=== PATIENT | male | born 1985 | race Hispanic/Latino ===

== ENCOUNTER 2018-12-24 16:27 | Emergency (ER) | payer SELFPAY ==
[2018-12-24] MEDS ORDERED: TETANUS & DIPHTHERIA TOX,ADULT 0.5 ML VIAL ONE (16:53)
[2018-12-24] MEDS ORDERED: FENTANYL CITR 100 MCG/2 ML ONE ×2 (16:53→17:59)
[2018-12-24] MEDS ORDERED: ONDANSETRON 4 MG/2 ML VIAL ONE (16:54)
--- NOTE | 2018-12-24 17:35 | RAD REPORT ---
EXAM DESCRIPTION: RAD - Hand Left 3 View - 12/24/2018 5:19 pm CLINICAL HISTORY: PAIN COMPARISON: No comparisons FINDINGS: Soft tissue swelling affects the first finger. No fracture or foreign body.
--- NOTE | 2018-12-24 18:29 | RAD REPORT ---
EXAM DESCRIPTION: CT - Wrist Left W Con - 12/24/2018 6:19 pm CLINICAL HISTORY: puncture wound with suspected radial artery injury Trauma, pain COMPARISON: <Comparisons> FINDINGS: No fracture or dislocation is seen. No radiopaque foreign body. Soft tissue edema and swel ling is seen along the radial aspect of the wrist and hand adjacent to the base of the first metacarp al. The radial and ulnar artery show normal enhancement pattern. All CT scans are performed using dose optimization technique as appropriate and may include automated exposure control or mA/KV adjustment according to patient size. IMPRESSION: No significant flow abnormality of the radial or ulnar artery is seen.
[2018-12-24] MEDS ORDERED: HYDROMORPHONE HCL 0.5 MG/0.5 ML INJ ONE (18:57)
[2018-12-24] MEDS ORDERED: LIDOCAINE 1% MPF 5 ML VIAL ONE (19:51)
--- NOTE | 2018-12-24 19:59 | ER ---
Nurse's Notes [facility] Name: Julian Garcia Age: 33 yrs Sex: Male : 1985 Arrival Date: 12/24/2018 Time: 16:29 Bed 2 Private MD: Diagnosis: Puncture wound without foreign body of left wrist Presentation: 12/24 16:30 Presenting complaint: Patient states: pt was at work with a nail gun and the nail went sv through his left anterior wrist up into the left thumb and he pulled it out. Care prior to arrival: None. 16:30 Acuity: SANTOSH 2 sv 16:30 Method Of Arrival: Ambulatory sv 17:18 Transition of care: patient was not received from another setting of care. Onset of tw2 symptoms was December 24, 2018. Risk Assessment: Do you want to hurt yourself or someone else? Patient reports no desire to harm self or others. Initial Sepsis Screen: Does the patient meet any 2 criteria? No. Patient's initial sepsis screen is negative. Does the patient have a suspected source of infection? No. Patient's initial sepsis screen is negative. 19:20 Mechanism of Injury: Penetrating trauma inflicted by nail gun. Trauma event details: tw2 Injury occurred in the [facility]. Triage Assessment: 16:48 General: Appears in no apparent distress. uncomfortable, Behavior is cooperative, bp appropriate for age, anxious. Pain: Complains of pain in left wrist. EENT: No deficits noted. Neuro: No deficits noted. Cardiovascular: No deficits noted. Respiratory: No deficits noted. GI: No signs and/or symptoms were reported involving the gastrointestinal system. : No signs and/or symptoms were reported regarding the genitourinary system. Derm: No deficits noted. Musculoskeletal: No deficits noted. Injury Description: Puncture sustained to left wrist. Trauma Activation: Not Applicable Physician: ED Physician; Name: ; Notified At: ; Arrived At: Physician: General Surgeon; Name: ; Notified At: ; Arrived At: Physician: Radiology; Name: ; Notified At: ; Arrived At: Physician: Respiratory; Name: ; Notified At: ; Arrived At: Physician: Lab; Name: ; Notified At: ; Arrived At: Historical: - Allergies: 16:31 No Known Allergies; sv - Immunization history: Last tetanus immunization: unknown. - Social history:: Smoking status: . - Ebola Screening: : Patient denies travel to an Ebola-affected area in the 21 days before illness onset. Screenin:43 Abuse screen: Denies threats or abuse. Denies injuries from another. Tuberculosis bp screening: No symptoms or risk factors identified. 19:20 Nutritional screening: No deficits noted. Fall Risk None identified. tw2 Primary Survey: 16:43 NO uncontrolled hemorrhage observed. A: Airway: patent. Breathing/Chest: Respiratory bp pattern: regular, Respiratory effort: spontaneous, unlabored. Circulation: Skin color: pink, Skin temperature: warm, moist. Disability Alert. Exposure/Environment: All clothing and personal items were removed. Forensic evidence collection is not deemed to be indicated at this time. Items placed in patient belonging bag. 17:45 Reassessment Airway Airway Breathing/Chest Respiratory pattern Regular Respiratory tw2 effort Spontaneous Unlabored Breath sounds Clear Chest inspection Symmetrical Circulation Heart tones Present Disability Alert. Assessment: 16:43 General: Appears in no apparent distress. uncomfortable, slender, Behavior is calm, bp cooperative, appropriate for age. Pain: Complains of pain in left wrist. Neuro: No deficits noted. EENT: No deficits noted. Cardiovascular: No deficits noted. Respiratory: No deficits noted. GI: No signs and/or symptoms were reported involving the gastrointestinal system. : No signs and/or symptoms were reported regarding the genitourinary system. Derm: No deficits noted. Musculoskeletal: No deficits noted. Injury Description: Puncture sustained to left wrist is NAILGUN. 17:18 Reassessment: Patient appears in no apparent distress at this time. No changes from tw2 previously documented assessment. Patient and/or family updated on plan of care and expected duration. Pain level reassessed. Patient is alert, oriented x 3, equal unlabored respirations, skin warm/dry/pink. 18:21 Reassessment: PT RETURNED FROM CT, RESULTS PENDING. bp 19:45 Reassessment: Patient appears in no apparent distress at this time. Patient is alert, lp1 oriented x 3, equal unlabored respirations, skin warm/dry/pink. Reassessment: Patient states pain 8/10 to left wrist. Cardiovascular: Pulses are palpable in right radial artery and left radial artery. 20:36 Reassessment: Patient and/or family updated on plan of care and expected duration. Pain ea level reassessed. Patient is alert, oriented x 3, equal unlabored respirations, skin warm/dry/pink. Discharge instruction given to patient, verbalized the understanding of instruction. Pt left ambulatory accompanied by family, pt tolerating well. Vital Signs: 16:31 BP 129 / 86; Pulse 120; Resp 18; Temp 98; Pulse Ox 99% ; Weight 72.57 kg; Height 5 ft. sv 7 in. (170.18 cm); 17:18 Pulse 74; Resp 17; Pulse Ox 95% on R/A; tw2 18:21 BP 126 / 79; Pulse 81; Resp 17; Pulse Ox 100% ; bp 19:45 BP 120 / 85; Pulse 62; Resp 16; Pulse Ox 100% on R/A; Pain 8/10; lp1 20:15 BP 108 / 73; Pulse 66; Resp 16; Pulse Ox 100% on R/A; lp1 16:31 Body Mass Index 25.06 (72.57 kg, 170.18 cm) sv Anton Coma Score: 16:31 Eye Response: spontaneous(4). Verbal Response: oriented(5). Motor Response: obeys sv commands(6). Total: 15. Trauma Score (Adult): 16:31 Eye Response: spontaneous(1); Verbal Response: oriented(1); Motor Response: obeys sv commands(2); Systolic BP: > 89 mm Hg(4); Respiratory Rate: 10 to 29 per min(4); Anton Score: 15; Trauma Score: 12 ED Course: 16:29 Patient arrived in ED. as 16:30 Triage completed. sv 16:31 Tristian Rodriguez, PARISA is Primary Nurse. bp 16:32 Georges Montesinos PA is PHCP. jr8 16:32 Misha Larson MD is Attending Physician. jr8 16:43 Patient has correct armband on for positive identification. Allergy band placed. Bed in bp low position. Call light in reach. Side rails up X2. 16:43 Patient maintains SpO2 saturation greater than 95% on room air. Thermoregulation: warm bp blanket given to patient. 16:46 Arm band placed on. bp 17:10 Inserted saline lock: 22 gauge in right forearm, using aseptic technique. Blood bp collected. 17:23 Hand Left 3 View XRAY In Process Unspecified. EDMS 18:29 Wrist Left W Con In Process Unspecified. EDMS 19:00 Report given to EbonyRN and PARISA Shabazz. tw2 19:57 Modesto Nieves MD is Referral Physician. jr8 20:13 No provider procedures requiring assistance completed. lp1 20:36 IV discontinued, intact, bleeding controlled, No redness/swelling at site. Pressure ea dressing applied. 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 Exp: bp 08/21/2020. Lot #: [id number]. } Route: IM; Site: right deltoid; 17:54 Follow up: Response: No adverse reaction bp 17:00 Drug: fentaNYL (PF) 50 mcg Route: IVP; Site: right antecubital; bp 17:54 Follow up: Response: Pain is decreased bp 17:00 Drug: Zofran 4 mg Route: IVP; Site: right forearm; bp 17:54 Follow up: Response: Nausea is decreased bp 17:54 CANCELLED (Physician Discretion): fentaNYL Patch (50 mcg/hr) 1 patches Transdermal jr8 once; RASS on ADMIN: Combtv4, Very Agttd3, Agttd2, Rstlss1, AlertClm0, Drwsy-1, Lt Sdtn-2, Mod Sdtn-3, Dp Sdtn-4, UnArsble-5 18:02 Drug: fentaNYL (PF) 50 mcg Route: IVP; Site: right forearm; bp 18:52 Follow up: Response: No adverse reaction; Pain is unchanged, physician notified; RASS: tw2 Alert and Calm (0) 18:58 Drug: Dilaudid 0.5 mg Route: IVP; Site: right forearm; bp 19:45 Follow up: Response: Pain is decreased; RASS: Alert and Calm (0) lp1 20:06 Drug: Ancef 1 grams Route: IVPB; Site: right forearm; ea 20:36 Follow up: Response: No adverse reaction; IV Status: Completed infusion ea Intake: 16:31 PO: 0ml; Total: 0ml. sv Output: 16:31 Urine: 0ml; Total: 0ml. sv Outcome: 19:21 Patient's length of stay in the Emergency Department was greater than 2 hours. d/t tw2 imaging and evaluationPatient's length of stay extended due to 19:58 Discharge ordered by MD. chaudhari 20:36 Condition: stable ea 20:36 Discharge instructions given to patient, Instructed on discharge instructions, follow up and referral plans. medication usage, Demonstrated understanding of instructions, follow-up care, medications, Prescriptions given X 3. 20:38 Discharged to home ambulatory, with family. ea 20:38 Patient left the ED. ea Signatures: Dispatcher [employer] EDMS Jayda Pena RN RN Coby Alcazar Laura, RN RN lp1 Georges Montesinos PA PA Stacey De La Cruz RN RN tw2 [place] Farnsworth RN RN ea Peltier, Brian, RN RN bp Corrections: (The following items were deleted from the chart) 16:44 16:43 Pain: bp bp
--- NOTE | 2018-12-24 19:59 | EDPHYS ---
Physician Documentation [facility] Name: Julian Garcia Age: 33 yrs Sex: Male : 1985 Arrival Date: 12/24/2018 Time: 16:29 Bed 2 Private MD: Misha Jain HPI: 12/24 16:41 This 33 yrs old Male presents to ER via Ambulatory with complaints of Puncture jr8 Wound To Hand. 16:41 The patient or guardian reports a puncture wound, from a nail. The complaints affect jr8 the left wrist. Context: The problem was sustained at work, resulted from Nail gun use. Onset: The symptoms/episode began/occurred just prior to arrival. Modifying factors: The symptoms are alleviated by nothing, the symptoms are aggravated by nothing. Associated signs and symptoms: Pertinent negatives: cyanosis distally, decreased sensation distally, fever, nausea, numbness distally, tingling distally, vomiting. 16:44 Pt reports using nail gun and accidently shooting self in left wrist. . jr8 Historical: - Allergies: 16:31 No Known Allergies; sv - Immunization history: Last tetanus immunization: unknown. - Social history:: Smoking status: . - Ebola Screening: : Patient denies travel to an Ebola-affected area in the 21 days before illness onset. ROS: 16:44 Constitutional: Negative for fever, chills, and weight loss, Eyes: Negative for injury, jr8 pain, redness, and discharge, ENT: Negative for injury, pain, and discharge, Neck: Negative for injury, pain, and swelling, Cardiovascular: Negative for chest pain, palpitations, and edema, Respiratory: Negative for shortness of breath, cough, wheezing, and pleuritic chest pain, Abdomen/GI: Negative for abdominal pain, nausea, vomiting, diarrhea, and constipation, Back: Negative for injury and pain, Skin: Negative for injury, rash, and discoloration, Neuro: Negative for headache, weakness, numbness, tingling, and seizure. 16:44 Skin: Positive for of the left wrist, Puncture wount. Exam: 16:44 Constitutional: This is a well developed, well nourished patient who is awake, alert, jr8 and in no acute distress. Head/Face: Normocephalic, atraumatic. Eyes: Pupils equal round and reactive to light, extra-ocular motions intact. Lids and lashes normal. Conjunctiva and sclera are non-icteric and not injected. Cornea within normal limits. Periorbital areas with no swelling, redness, or edema. ENT: Nares patent. No nasal discharge, no septal abnormalities noted. Tympanic membranes are normal and external auditory canals are clear. Oropharynx with no redness, swelling, or masses, exudates, or evidence of obstruction, uvula midline. Mucous membranes moist. Neck: Trachea midline, no thyromegaly or masses palpated, and no cervical lymphadenopathy. Supple, full range of motion without nuchal rigidity, or vertebral point tenderness. No Meningismus. Chest/axilla: Normal chest wall appearance and motion. Nontender with no deformity. No lesions are appreciated. Cardiovascular: Regular rate and rhythm with a normal S1 and S2. No gallops, murmurs, or rubs. Normal PMI, no JVD. No pulse deficits. Respiratory: Lungs have equal breath sounds bilaterally, clear to auscultation and percussion. No rales, rhonchi or wheezes noted. No increased work of breathing, no retractions or nasal flaring. Abdomen/GI: Soft, non-tender, with normal bowel sounds. No distension or tympany. No guarding or rebound. No evidence of tenderness throughout. Back: No spinal tenderness. No costovertebral tenderness. Full range of motion. MS/ Extremity: Pulses equal, no cyanosis. Neurovascular intact. Full, normal range of motion. Neuro: Awake and alert, GCS 15, oriented to person, place, time, and situation. Cranial nerves II-XII grossly intact. Motor strength 5/5 in all extremities. Sensory grossly intact. Cerebellar exam normal. Normal gait. 16:44 Musculoskeletal/extremity: Extremities: puncture, Puncture wound to left wrist just medial to CMC line. The puncture wound is approximately 1.5cm from the palpated radial pulse. Normal sensation without numbness or tingling, pt has full hand function without limitation of hand or wrist. Patient had + radial deficit on Amilcar's test with normal ulnar collateral circulation , ROM: intact in all extremities, full active range of motion, full passive range of motion, Pulses: noted to be 2+ in the right radial artery and left radial artery, Sensation intact. Vital Signs: 16:31 BP 129 / 86; Pulse 120; Resp 18; Temp 98; Pulse Ox 99% ; Weight 72.57 kg; Height 5 ft. sv 7 in. (170.18 cm); 17:18 Pulse 74; Resp 17; Pulse Ox 95% on R/A; tw2 18:21 BP 126 / 79; Pulse 81; Resp 17; Pulse Ox 100% ; bp 19:45 BP 120 / 85; Pulse 62; Resp 16; Pulse Ox 100% on R/A; Pain 8/10; lp1 20:15 BP 108 / 73; Pulse 66; Resp 16; Pulse Ox 100% on R/A; lp1 16:31 Body Mass Index 25.06 (72.57 kg, 170.18 cm) sv Margie Coma Score: 16:31 Eye Response: spontaneous(4). Verbal Response: oriented(5). Motor Response: obeys sv commands(6). Total: 15. Trauma Score (Adult): 16:31 Eye Response: spontaneous(1); Verbal Response: oriented(1); Motor Response: obeys sv commands(2); Systolic BP: > 89 mm Hg(4); Respiratory Rate: 10 to 29 per min(4); Casimiro Score: 15; Trauma Score: 12 MDM: 16:32 Patient medically screened. jr8 19:48 Data reviewed: vital signs, nurses notes, lab test result(s), radiologic studies, CT jr8 scan, plain films. Data interpreted: Pulse oximetry: on room air is 100 %. Interpretation: normal. Counseling: I had a detailed discussion with the patient and/or guardian regarding: the historical points, exam findings, and any diagnostic results supporting the discharge/admit diagnosis, lab results, radiology results, the need for outpatient follow up, a hand specialist, to return to the emergency department if symptoms worsen or persist or if there are any questions or concerns that arise at home. 19:56 ED course: Patient still with 2 + radial pulses. Pain under control. No extravasation jr8 from wound site. CT shows no flow defect of the radial artery. Full ROM. Will have patient f/u with hand surgery . 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 Exp: bp 08/21/2020. Lot #: [id number]. } Route: IM; Site: right deltoid; 17:54 Follow up: Response: No adverse reaction bp 17:00 Drug: fentaNYL (PF) 50 mcg Route: IVP; Site: right antecubital; bp 17:54 Follow up: Response: Pain is decreased bp 17:00 Drug: Zofran 4 mg Route: IVP; Site: right forearm; bp 17:54 Follow up: Response: Nausea is decreased bp 17:54 CANCELLED (Physician Discretion): fentaNYL Patch (50 mcg/hr) 1 patches Transdermal jr8 once; RASS on ADMIN: Combtv4, Very Agttd3, Agttd2, Rstlss1, AlertClm0, Drwsy-1, Lt Sdtn-2, Mod Sdtn-3, Dp Sdtn-4, UnArsble-5 18:02 Drug: fentaNYL (PF) 50 mcg Route: IVP; Site: right forearm; bp 18:52 Follow up: Response: No adverse reaction; Pain is unchanged, physician notified; RASS: tw2 Alert and Calm (0) 18:58 Drug: Dilaudid 0.5 mg Route: IVP; Site: right forearm; bp 19:45 Follow up: Response: Pain is decreased; RASS: Alert and Calm (0) lp1 20:06 Drug: Ancef 1 grams Route: IVPB; Site: right forearm; ea 20:36 Follow up: Response: No adverse reaction; IV Status: Completed infusion ea Disposition: 12/24/18 19:58 Discharged to Home. Impression: Puncture wound without foreign body of left wrist. - Condition is Stable. - Discharge Instructions: Puncture Wound. - Prescriptions for Ibuprofen 800 mg Oral Tablet - take 1 tablet by ORAL route every 12 hours As needed take with food; 20 tablet. Tylenol- Codeine #3 300-30 mg Oral Tablet - take 2 tablets by ORAL route every 6 hours As needed; 12 tablet. Bactrim DS 800- 160 mg Oral Tablet - take 1 tablet by ORAL route every 12 hours for 10 days; 20 tablet. - Medication Reconciliation Form, Thank You Letter, Antibiotic Education, Prescription Opioid Use form. - Follow up: Modesto Nieves MD; When: 2 - 3 days; Reason: Wound Recheck, Recheck today's complaints, Continuance of care, Re-evaluation by your physician. - Problem is new. - Symptoms have improved. Signatures: Dispatcher [employer] EDJayda Mosley RN RN Georges Wood PA PA jr8 Stacey Cole RN RN tw2 [place] Farnsworth RN RN ea Peltier, Brian, RN RN bp Ebony Kearney RN lp1 Corrections: (The following items were deleted from the chart) 17:54 17:51 fentaNYL Patch (50 mcg/hr) 1 patches Transdermal once; RASS on ADMIN: Combtv4, jr8 Very Agttd3, Agttd2, Rstlss1, AlertClm0, Drwsy-1, Lt Sdtn-2, Mod Sdtn-3, Dp Sdtn-4, UnArsble-5 ordered. jr8 19:50 16:44 Musculoskeletal/extremity: Extremities: puncture, Puncture wound to left wrist jr8 just medial to CMC line. The puncture wound is approximately 1.5cm from the palpated radial pulse. Normal sensation without numbness or tingling, pt has full hand function without limitation of hand or wrist. , jr8 20:38 19:58 12/24/2018 19:58 Discharged to Home. Impression: Puncture wound without foreign ea body of left wrist. Condition is Stable. Forms are Medication Reconciliation Form, Thank You Letter, Antibiotic Education, Prescription Opioid Use. Follow up: Modesto Nieves; When: 2 - 3 days; Reason: Wound Recheck, Recheck today's complaints, Continuance of care, Re-evaluation by your physician. Problem is new. Symptoms have improved. jr8
[2018-12-24] MEDS ORDERED: CEFAZOLIN/SWI 1gm 1 GM/10 ML SYR ONE (20:03)
[2018-12-24 22:07] VITALS: TEMP 98
[2018-12-24 22:09] VITALS: O2SAT 100
[2018-12-24 22:12] VITALS: BP 108/73
== END 2018-12-24 20:38 | disposition home or self-care (01) ==
LOC: ER 16:27
DX: S61.532A Puncture wound without foreign body of left wrist, initial encounter (principal); W29.4XXA Contact with nail gun, initial encounter; Y93.9 Activity, unspecified; Y92.89 Other specified places as the place of occurrence of the external cause; Y99.8 Other external cause status; Z23 Encounter for immunization
CPT/HCPCS: 73201; 90471; 90714; 96365; 96375; 99284; J0690; J1170; J2405; J3010; Q9966

== ENCOUNTER 2019-05-31 23:28 | Emergency (ER) | payer SELFPAY ==
[2019-06-01] MEDS ORDERED: FLUORESCEIN SODIUM 1 MG/WRAP ONE (00:05)
[2019-06-01] MEDS ORDERED: TETRACAINE HCL 0.5% 4ML OPTH ONE (00:05)
[2019-06-01] MEDS ORDERED: Ringers Lactate 1,000 ML IV ONE (00:52)
[2019-06-01] MEDS ORDERED: TETANUS & DIPHTHERIA TOX,ADULT 0.5 ML VIAL ONE (01:21)
--- NOTE | 2019-06-01 01:33 | EDPHYS ---
Physician Documentation [facility] Name: Julian Garcia Age: 33 yrs Sex: Male : 1985 Arrival Date: 05/31/2019 Time: 23:31 Bed 5 Private MD: ED Physician Misha Larson HPI: 06/01 00:16 This 33 yrs old Male presents to ER via Ambulatory with complaints of Foreign cp Body In Eye. 00:16 The patient is experiencing foreign body sensation, pain, redness, to the left eye, cp caused by possible metal fragment. Onset: The symptoms/episode began/occurred today. Duration: the symptoms are continuous. 00:16 Patient does not utilize any form of vision correction. cp 00:16 Associated signs and symptoms: Pertinent negatives: ear ache, fever, headache. Severity cp of symptoms: in the emergency department the symptoms are unchanged despite home interventions. 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 Flushed his eye with over the counter eye solution and used q-tip to remove some "plastic" appearing debris this evening. Historical: - Allergies: 05/31 23:50 No Known Allergies; ca1 - Home Meds: 23:50 None [Active]; ca1 - PMHx: 23:50 None; ca1 - PSHx: 23:50 None; ca1 - Immunization history:: Adult Immunizations up to date, Flu vaccine is not up to date. - Coronavirus screen:: The patient has NOT traveled to [place] in the past 14 days. The patient has NOT had contact with known/suspected case of Coronavirus?. - Social history:: Smoking status: Patient denies any tobacco usage or history of. - Ebola Screening: : Patient negative for fever greater than or equal to 101.5 degrees Fahrenheit, and additional compatible Ebola Virus Disease symptoms Patient denies exposure to infectious person Patient denies travel to an Ebola-affected area in the 21 days before illness onset No symptoms or risks identified at this time. ROS: 06/01 00:20 Constitutional: Negative for body aches, chills, fever. cp 00:20 Eyes: Positive for foreign body sensation, pain, redness, of the left eye. cp 00:20 ENT: Negative for drainage from ear(s), ear pain, sore throat, difficulty swallowing, difficulty handling secretions. 00:20 Cardiovascular: Negative for chest pain, palpitations. 00:20 Respiratory: Negative for cough, shortness of breath, wheezing. 00:20 Abdomen/GI: Negative for abdominal pain, vomiting, diarrhea, constipation. 00:20 Skin: Negative for rash. 00:20 Neuro: Negative for altered mental status, headache, weakness. 00:20 All other systems are negative. Exam: 00:35 Constitutional: The patient appears in no acute distress, alert, awake, non-toxic, well cp developed, well nourished, uncomfortable. 00:35 Head/Face: Normocephalic, atraumatic. cp 00:35 Eyes: Periorbital structures: appear normal, Pupils: equal, round, and reactive to light and accomodation, Extraocular movements: intact throughout, Conjunctiva: injected, in the left eye, Corneas: abrasion, that is moderate sized, upper and lower outer cornea, foreign body, is not appreciated, a fluorescein strip employed to appreciate the findings, Lids and lashes: appear normal, bilaterally, Visual sears: are intact, Examination of the other eye reveals no obvious gross abnormality. 00:35 ENT: External ear(s): are unremarkable, Nose: is normal, Mouth: is normal, Posterior pharynx: Airway: no evidence of obstruction, patent. 00:35 Chest/axilla: Inspection: normal. 00:35 Cardiovascular: Rate: normal, Rhythm: regular. 00:35 Respiratory: the patient does not display signs of respiratory distress, Respirations: normal. 00:35 Skin: cellulitis, is not appreciated, no rash present. 01:05 Visual Acuity: I have reviewed the nursing documentation. cp Vital Signs: 05/31 23:50 BP 133 / 87; Pulse 77; Resp 16 S; Temp 97.1(O); Pulse Ox 100% on R/A; Weight 81.65 kg ca1 (R); Height 5 ft. 7 in. (170.18 cm) (R); Pain 10/10; 23:50 Body Mass Index 28.19 (81.65 kg, 170.18 cm) ca1 Visual Acuity: 06/01 00:55 Left Eye Visual acuity 20/25, Pupil size 3 mm, Normal, React To Light, Reactive To lp1 Accomodation; Right Eye Visual acuity 20/25, Pupil size 3 mm, Normal, React To Light, Reactive To Accomodation; Both Eyes Visual acuity 20/15; Without Lenses; MDM: 00:15 Patient medically screened. cp 00:20 Differential diagnosis: Corneal abrasion of left eye. Corneal ulcer of left eye. cp Foreign body in left eye. Acute iritis of left eye. Infectious conjunctivitis in left eye. Ultraviolet keratitis in left eye. 01:30 Data reviewed: vital signs, nurses notes, and as a result, I will discharge patient. cp 01:30 Counseling: I had a detailed discussion with the patient and/or guardian regarding: the cp historical points, exam findings, and any diagnostic results supporting the discharge/admit diagnosis, the need for outpatient follow up, an opthalmologist, to return to the emergency department if symptoms worsen or persist or if there are any questions or concerns that arise at home. Response to treatment: the patient's symptoms have mildly improved after treatment, and as a result, I will discharge patient. 05/31 23:57 Order name: Eye Tray; Complete Time: 23:57 [facility] 05/31 23:57 Order name: Fluoresene Opth strip; Complete Time: 23:57 lp1 06/01 00:32 Order name: Visual Acuity; Complete Time: 01:29 lp1 06/01 00:42 Order name: Misc. 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 Exp: lp1 04/25/2021. Lot #: [id number]. } Route: IM; Site: right deltoid; 02:14 Follow up: Response: No adverse reaction lp1 02:00 Drug: Gentamicin Drops 0.3 % 1 drops Route: Ophthalmic; Site: left eye; lp1 Disposition: 02:20 Chart complete. cp 06/02 00:02 Co-signature as Attending Physician, Misha Larson MD I agree with the assessment and farhan plan of care. Disposition: 06/01/19 01:32 Discharged to Home. Impression: Injury of conjunctiva and corneal abrasion without foreign body, left eye. - Condition is Stable. - Discharge Instructions: Corneal Abrasion. - Prescriptions for Gentamicin 0.3 % Ophthalmic Drops - instill 1 drop by OPHTHALMIC route every 4 hours for 7 days; 1 bottle. - Medication Reconciliation Form, Thank You Letter, Antibiotic Education, Prescription Opioid Use form. - Follow up: Tony Rodriguez MD; When: 1 - 2 days; Reason: Recheck today's complaints. - Problem is new. - Symptoms have improved. Signatures: Misha Larson MD MD cha Pena, Laura, RN RN lp1 Misha Herring PA PA cp Estephanie De Guzman RN RN ca1 Corrections: (The following items were deleted from the chart) 06/01 02:16 01:32 06/01/2019 01:32 Discharged to Home. Impression: Injury of conjunctiva and lp1 corneal abrasion without foreign body, left eye. Condition is Stable. Forms are Medication Reconciliation Form, Thank You Letter, Antibiotic Education, Prescription Opioid Use. Follow up: Tony Rodriguez; When: 1 - 2 days; Reason: Recheck today's complaints. Problem is new. Symptoms have improved. cp
--- NOTE | 2019-06-01 01:33 | ER ---
Nurse's Notes [facility] Name: Julian Garcia Age: 33 yrs Sex: Male : 1985 Arrival Date: 05/31/2019 Time: 23:31 Bed 5 Private MD: Diagnosis: Injury of conjunctiva and corneal abrasion without foreign body, left eye Presentation: 05/31 23:48 Presenting complaint: Patient states: metal on L eye since 1800. Transition of care: ca1 patient was not received from another setting of care. Onset of symptoms was May 31, 2019. Risk Assessment: Do you want to hurt yourself or someone else? Patient reports no desire to harm self or others. Initial Sepsis Screen: Does the patient meet any 2 criteria? No. Patient's initial sepsis screen is negative. Does the patient have a suspected source of infection? No. Patient's initial sepsis screen is negative. Care prior to arrival: None. 23:48 Method Of Arrival: Ambulatory ca1 23:48 Acuity: SANTOSH 2 ca1 Historical: - Allergies: 23:50 No Known Allergies; ca1 - Home Meds: 23:50 None [Active]; ca1 - PMHx: 23:50 None; ca1 - PSHx: 23:50 None; ca1 - Immunization history:: Adult Immunizations up to date, Flu vaccine is not up to date. - Coronavirus screen:: The patient has NOT traveled to [place] in the past 14 days. The patient has NOT had contact with known/suspected case of Coronavirus?. - Social history:: Smoking status: Patient denies any tobacco usage or history of. - Ebola Screening: : Patient negative for fever greater than or equal to 101.5 degrees Fahrenheit, and additional compatible Ebola Virus Disease symptoms Patient denies exposure to infectious person Patient denies travel to an Ebola-affected area in the 21 days before illness onset No symptoms or risks identified at this time. Screenin/22 00:27 Abuse screen: Denies threats or abuse. Denies injuries from another. Nutritional lp1 screening: No deficits noted. Tuberculosis screening: No symptoms or risk factors identified. Fall Risk None identified. Assessment: 00:00 General: Appears uncomfortable, Behavior is appropriate for age. Pain: Complains of lp1 pain in left eye Pain currently is 10 out of 10 on a pain scale. Quality of pain is described as burning. Neuro: No deficits noted. Cardiovascular: Patient's skin is warm and dry. Respiratory: Respiratory effort is even, unlabored. GI: No signs and/or symptoms were reported involving the gastrointestinal system. : No signs and/or symptoms were reported regarding the genitourinary system. EENT: Eyes are tearing on left eye Sclera/Cornea are reddened in left eye. Derm: Skin is pink, warm \T\ dry. Musculoskeletal: No deficits noted. 01:30 Reassessment: Patient states continued discomfort to left eye after irrigation with LR lp1 using Jordi lens; Provider notified; Patient unable to tolerate Tetracaine eye drops to left eye. 01:45 Reassessment: Continued burning to left eye. Reassessment: Provider at bedside to lp1 discuss follow up care with slps; Patient demonstrates understanding. EENT: Sclera/Cornea are reddened in left eye. 02:00 Reassessment: Patch applied to left eye for patient comfort prior to discharge. lp1 Vital Signs: 05/31 23:50 BP 133 / 87; Pulse 77; Resp 16 S; Temp 97.1(O); Pulse Ox 100% on R/A; Weight 81.65 kg ca1 (R); Height 5 ft. 7 in. (170.18 cm) (R); Pain 10/10; 23:50 Body Mass Index 28.19 (81.65 kg, 170.18 cm) ca1 Visual Acuity: 06/01 00:55 Left Eye Visual acuity 20/25, Pupil size 3 mm, Normal, React To Light, Reactive To lp1 Accomodation; Right Eye Visual acuity 20/25, Pupil size 3 mm, Normal, React To Light, Reactive To Accomodation; Both Eyes Visual acuity 20/15; Without Lenses; ED Course: 05/31 23:31 Patient arrived in ED. jg7 23:49 Triage completed. ca1 23:50 Arm band placed on right wrist. ca1 23:56 Ebony Kearney, PARISA is Primary Nurse. lp1 06/01 00:14 Misha Herring PA is PHCP. cp 00:14 Misha Larson MD is Attending Physician. cp 00:27 Patient has correct armband on for positive identification. lp1 01:00 Eye irrigation of left eye w/ Jordi lens with 1 liter lp1 01:31 Tony Rodriguez MD is Referral Physician. cp 02:14 No provider procedures requiring assistance completed. Patient did not have IV access lp1 during this emergency room visit. 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 Exp: lp1 04/25/2021. Lot #: [id number]. } Route: IM; Site: right deltoid; 02:14 Follow up: Response: No adverse reaction lp1 02:00 Drug: Gentamicin Drops 0.3 % 1 drops Route: Ophthalmic; Site: left eye; lp1 Outcome: 01:32 Discharge ordered by MD. cp 02:14 Discharged to home ambulatory, with family. lp1 02:14 Condition: good 02:14 Discharge instructions given to patient, Instructed on discharge instructions, follow up and referral plans. medication usage, Demonstrated understanding of instructions, follow-up care, medications, Prescriptions given X 1. 02:16 Patient left the ED. lp1 Signatures: Ebony Kearney, RN RN lp1 Misha Herring PA PA Estephanie Inman RN RN [facility] [place] Small [id number]
[2019-06-01] MEDS ORDERED: GENTAMICIN 0.3% OPTH DROP 5ML ONE (01:49)
[2019-06-01 05:19] VITALS: BP 133/87; TEMP 97.1; O2SAT 100
== END 2019-06-01 02:16 | disposition home or self-care (01) ==
LOC: ER 23:28
DX: S05.02XA Injury of conjunctiva and corneal abrasion without foreign body, left eye, initial encounter (principal); X58.XXXA Exposure to other specified factors, initial encounter; Y93.89 Activity, other specified; Y92.89 Other specified places as the place of occurrence of the external cause; Y99.0 Civilian activity done for income or pay; Z23 Encounter for immunization
CPT/HCPCS: 90471; 90714; 99283; J7120